=== PATIENT | male | born 1965 | race Caucasian/White ===

== ENCOUNTER 2021-08-01 11:28 | Emergency (ER) | payer OTHER ==
[~2021-08-01] VITALS: Ht 175.3 cm; Wt 93.5 kg
[2021-08-01 11:55] LABS: BASOPHILS % (AUTO) 1 % (0-1); EOSINOPHILS % (AUTO) 1 % (1-7); LYMPHOCYTES % (AUTO) 8 % (22-44); MEAN CORPUSCULAR HEMOGLOBIN 35.3 pg (27.5-34.5); MEAN PLATELET VOLUME 9.4 fL (7.4-10.4); MONOCYTES % (AUTO) 7 % (2-9); NEUTROPHILS % (AUTO) 85 % (42-75); PLATELET COUNT 156 x10^3/uL (130-400); RED BLOOD COUNT 4.84 x10^6/uL (4.38-5.82); RED CELL DISTRIBUTION WIDTH 13.6 % (9.4-14.8)
[2021-08-01 12:07] LABS: ALANINE AMINOTRANSFERASE 28 U/L (12-78); ALBUMIN 3.5 g/dL (3.4-5.0); ANION GAP 10 mmol/L (5-15); CHLORIDE 105 mmol/L (98-107); CREATININE 0.75 mg/dL (0.7-1.3)
[2021-08-01 12:12] LABS: ALKALINE PHOSPHATASE 129 U/L (45-117); BILIRUBIN,TOTAL 0.6 mg/dL (0.2-1.0); TOTAL PROTEIN 9.1 g/dL (6.4-8.2); TROPONIN I < 0.015 ng/mL (0.000-0.045)
[2021-08-01 16:45] VITALS: BP 150/90
--- NOTE | 2021-08-01 16:59 | NUR ---
PIV INITIATED, PT TO CT AT THIS TIME
[2021-08-01] MEDS ORDERED: OMNIPAQUE 350 MG/ML, 75ML BOTTLE ONE (17:10)
== END 2021-08-01 18:07 | disposition home or self-care (01) ==
LOC: ED 17:51
DX: R07.89 Other chest pain (principal)
CPT/HCPCS: 36415; 71045; 71275; 80053; 84484; 85025; 85379; 93005; 99285; Q9967